=== PATIENT | male | born 1980 | race African-American/Black ===

== ENCOUNTER 2016-10-10 09:26 | Emergency (ER) | payer OTHER ==
[2016-10-10 09:59] LABS: MANUAL DIFF NEEDED? NO
[2016-10-10 10:15] LABS: URINE CULTURE NEEDED? NO; URINE MICRO REVIEW NEEDED? NO; URINE SOURCE CLEAN CATCH
[2016-10-10 10:20] LABS: BILIRUBIN URINE NEGATIVE (NEGATIVE); BLOOD URINE NEGATIVE (NEGATIVE); COLOR YELLOW; GLUCOSE URINE NEGATIVE (NEGATIVE); LEUKOCYTES URINE NEGATIVE (NEGATIVE); NITRITE URINE NEGATIVE (NEGATIVE); PROTEIN URINE 200 mg/dL (NEGATIVE); SP GRAVITY URINE 1.031; TURBIDITY URINE CLEAR (CLEAR); UROBILINOGEN URINE NORMAL (NORMAL)
[2016-10-10 10:22] LABS: UR EPITHELIAL CELLS <10 /HPF (<10); URINE BACTERIA NEGATIVE /HPF; URINE RBC <10 /HPF (<10); URINE WBC <10 /HPF (<10)
[2016-10-10 10:26] LABS: BASO% 0.2 % (0.0-0.8); HEMATOCRIT 39.7 % (42.0-52.0); HEMOGLOBIN 13.6 g/dL (14.0-18.0); IMM GRAN# 0.02 X1000 (0.0-0.04); IMM GRAN% 0.4 % (0.0-0.5); LYMPH# 2.25 X1000 (1.2-3.4); LYMPH% 44.1 % (20.5-51.1); MCH 27.6 PG (27-31); MCHC 34.3 g/dL (33-37); MCV 80.5 FL (81-99); MONO# 0.43 X1000 (0.11-0.59); MONO% 8.4 % (1.7-9.3); MPV 10.1 FL (7.4-10.4); NEUT% 44.9 % (42.2-75.2); PLT 258 X1000 (130-400); RBC 4.93 XMIL (4.7-6.1)
[2016-10-10 10:37] LABS: AGAP 10; ALBUMIN 3.9 g/dL (3.5-5.0); ALKALINE PHOSPHATASE 64 U/L (32-122); AMYLASE 155 U/L (20-200); BUN 9 mg/dL (8-22); CALCIUM 9.3 mg/dL (8.8-10.2); CHLORIDE 100 mmol/L (98-107); COSMO 274; GOT 17 U/L (10-34); GPT 17 U/L (10-44); LIPASE 45 U/L (13-60); POTASSIUM 4.1 mmol/L (3.5-5.1); SODIUM 138 mmol/L (136-145); TCO2 28 mmol/L (25-35); TOTAL BILIRUBIN 0.25 mg/dL (0.20-1.00); TOTAL PROTEIN 7.9 g/dL (6.3-8.3)
--- NOTE | 2016-10-10 11:51 | PROVIDER DOCUMENTATION ---
HPI-Abdominal Pain/GI Problem - General Chief Complaint: Abdominal Pain Stated Complaint: GENERALIZED PAIN Time Seen by Provider: 10/10/16 10:48 Source: patient, family Allergies/Adverse Reactions: Patient Allergies Allergy/AdvReac Type Severity Reaction Status Date / Time No Known Allergies Allergy Verified 10/10/16 11:04 Home Medications: Home Medication List Medication Instructions Recorded Confirmed Last Taken Type Lacosamide [Vimpat] 200 mg PO BID 07/18/16 10/10/16 10/10/16 History Oxcarbazepine [Oxtellar Xr] 600 mg PO BID 07/18/16 10/10/16 10/10/16 History Metformin [Glucophage] 500 mg PO BID CC 10/10/16 10/10/16 10/10/16 History Metronidazole [Flagyl] 500 mg PO TID #15 tablet 10/10/16 Unknown Rx - History of Present Illness-ABD Nature of Presenting Problems: A 36 y/o M with PMH of DM presented with LLQ discomfort since one month Abdominal Pain Onset Location: reports: LLQ Pain Radiation: reports: flank Quality of Pain: reports: aching Severity in ED: reports: mild Onset/Duration: reports: other (one month) Timing: reports: still present Activities at Onset: reports: none Exposure to sick contacts?: No Modifying Factors: improves with: nothing Associated Symptoms: reports: denies symptoms Last BM: this morning Dark Stools Present?: reports: none noticed Rectal Bleeding: reports: none Rectal Pain: reports: none Emesis Description: reports: none Bruising or Bleeding Gums?: No Similar Symptoms Previously?: No Recently seen or treated by another doctor?: No Review of Systems - Adult - REVIEW OF SYSTEMS - ADULT Constitutional: reports: no symptoms reported Eyes: reports: no symptoms reported Ears, Nose, Mouth & Throat: reports: no symptoms reported Cardiovascular: reports: no symptoms reported Respiratory: reports: no symptoms reported Gastrointestinal: reports: no symptoms reported Genitourinary: reports: no symptoms reported Musculoskeletal: reports: no symptoms reported Integumentary: reports: no symptoms reported Neurological: reports: no symptoms reported Psychiatric: reports: no symptoms reported Endocrine: reports: no symptoms reported Hematologic/Lymphatic: reports: no symptoms reported Allergic/Immunologic: reports: no symptoms reported All Other Systems: Reviewed and Negative Past History - Adult - PAST MEDICAL HISTORY-ADULT Review of Records: reports: Old Records Reviewed, Nursing Assessment Review, Medications Reviewed, Social history reviewed & non-contributory. Major Childhood Illnesses: reports: denies history Cardiovascular: reports: denies history Respiratory: reports: denies history Gastrointestinal: reports: denies history Obstetrical/Gynecological: reports: denies history Genitourinary: reports: denies history Musculoskeletal: reports: denies history Neurological: reports: Seizures/Epilepsy Endocrine/Immune: reports: Diabetes Other Conditions: reports: denies history - PRIOR SURGERIES/PROCEDURES Surgical/Procedure History: reports: none - PRIOR HOSPITALIZATIONS Prior Hospitalizations: reports: none - IMMUNIZATION STATUS Childhood Immunizations: See Nurse Assessment Flu Vaccine: See Nurse Assessment - FAMILY HISTORY Family History: reviewed, not pertinent Physical Exam-General - PHYSICAL EXAM-ADULT Initial Vital Signs Reviewed: Yes - CONSTITUTIONAL General Appearance: appears well, alert, no apparent distress - EYES Eyes: PERRL/EOMI, pink conjunctivae - HEAD, EARS, NOSE, MOUTH & THROAT HENMT: normocephalic/atraumatic, moist mucous membranes, normal ENT inspection - NECK Neck: non-tender, full range of motion - RESPIRATORY Respiratory: chest non-tender, lungs clear, normal breath sounds, no pleuratic chest pain, no respiratory distress - CARDIOVASCULAR Cardiovascular: normal peripheral pulses, regular rate, rhythm, no edema, no gallop - GASTROINTESTINAL (ABDOMEN) Abdominal Exam: normal bowel sounds, soft, tenderness (mild LLQ). 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, grossly normal - PSYCHIATRIC Psych/Mental Status: normal mood/affect Progress - PLAN OF CARE/RESULTS Progress/Plan/Lab Results: Laboratory Tests 10/10/16 10/10/16 10/10/16 09:42 09:42 10:00 WBC 5.10 RBC 4.93 Hgb 13.6 L Hct 39.7 L MCV 80.5 L MCH 27.6 MCHC 34.3 RDW Std Deviation 13.9 Plt Count 258 MPV 10.1 Immature Gran % (Auto) 0.4 Neut % (Auto) 44.9 Lymph % (Auto) 44.1 [place] % (Auto) 8.4 Eos % (Auto) 2.0 Baso % (Auto) 0.2 Immature Gran # (Auto) 0.02 Neut # (Auto) 2.29 Lymph # (Auto) 2.25 [place] # (Auto) 0.43 Eos # (Auto) 0.10 Baso # (Auto) 0.01 Sodium 138 Potassium 4.1 Chloride 100 Carbon Dioxide 28 Anion Gap 10 BUN 9 Creatinine 0.8 Estimated GFR/1.73 m2 > 60 BUN/Creatinine Ratio 11 Glucose 88 Calculated Osmolality 274 Calcium 9.3 Total Bilirubin 0.25 AST 17 ALT 17 Alkaline Phosphatase 64 Total Protein 7.9 Albumin 3.9 Globulin 4.0 Albumin/Globulin Ratio 1.0 Amylase 155 Lipase 45 Urine Source CLEAN CATCH Urine Color YELLOW Urine Turbidity CLEAR Urine pH 6.0 Ur Specific [place] 1.031 Urine Protein 200 A Ur Glucose (Stick) NEGATIVE Ur Ketones (Stick) NEGATIVE Urine Blood NEGATIVE Urine Nitrite NEGATIVE Urine Bilirubin NEGATIVE Urobilinogen Dipstick NORMAL Urine Leukocytes NEGATIVE Urine WBC (Auto) <10 Urine RBC (Auto) <10 U Epithel Cells (Auto) <10 Urine Bacteria (Auto) NEGATIVE Orders Category Date Time Status CT ABD/PELVIS W/ IV CONT ONLY [CT] Stat Exams 10/10/16 10:58 Completed AMYLASE [CHEM] Stat Lab 10/10/16 09:42 Completed CBC WITH ELECTRONIC DIFF [HEME] Stat Lab 10/10/16 09:42 Completed COMPREHENSIVE METABOLIC PANEL [CHEM] Stat Lab 10/10/16 09:42 Completed LIPASE [CHEM] Stat Lab 10/10/16 09:42 Completed UA Reflex [URINALYSIS W/POSS RFLX CULT] [URINALYSIS] Lab 10/10/16 10:00 Completed Stat Vital Signs Temp Pulse Resp BP Pulse Ox 10/10/16 13:41 97.7 F 83 16 144/89 99 10/10/16 09:38 97.4 F L 79 18 146/89 98 No Known Allergies Allergy (Verified 10/10/16 11:04) Lacosamide [Vimpat] 200 mg PO BID 07/18/16 Oxcarbazepine [Oxtellar Xr] 600 mg PO BID 07/18/16 Metformin [Glucophage] 500 mg PO BID CC 10/10/16 I&O 10/09/16 10/10/16 10/11/16 07:59 07:59 07:59 Output Total 60 Balance -60 Laboratory 10/10/16 10/10/16 10/10/16 10:00 09:42 09:42 WBC 5.10 RBC 4.93 Hgb 13.6 L Hct 39.7 L MCV 80.5 L MCH 27.6 MCHC 34.3 RDW Std Deviation 13.9 Plt Count 258 MPV 10.1 Immature Gran % (Auto) 0.4 Neut % (Auto) 44.9 Lymph % (Auto) 44.1 [place] % (Auto) 8.4 Eos % (Auto) 2.0 Baso % (Auto) 0.2 Immature Gran # (Auto) 0.02 Neut # (Auto) 2.29 Lymph # (Auto) 2.25 [place] # (Auto) 0.43 Eos # (Auto) 0.10 Baso # (Auto) 0.01 Sodium 138 Potassium 4.1 Chloride 100 Carbon Dioxide 28 Anion Gap 10 BUN 9 Creatinine 0.8 Estimated GFR/1.73 m2 > 60 BUN/Creatinine Ratio 11 Glucose 88 Calculated Osmolality 274 Calcium 9.3 Total Bilirubin 0.25 AST 17 ALT 17 Alkaline Phosphatase 64 Total Protein 7.9 Albumin 3.9 Globulin 4.0 Albumin/Globulin Ratio 1.0 Amylase 155 Lipase 45 Urine Source CLEAN CATCH Urine Color YELLOW Urine Turbidity CLEAR Urine pH 6.0 Ur Specific [place] 1.031 Urine Protein 200 A Ur Glucose (Stick) NEGATIVE Ur Ketones (Stick) NEGATIVE Urine Blood NEGATIVE Urine Nitrite NEGATIVE Urine Bilirubin NEGATIVE Urobilinogen Dipstick NORMAL Urine Leukocytes NEGATIVE Urine WBC (Auto) <10 Urine RBC (Auto) <10 U Epithel Cells (Auto) <10 Urine Bacteria (Auto) NEGATIVE - CT/MRI 1 CT Study: Abdomen, Pelvis (external Iliac adenopathy) Departure - Departure Time of Disposition Order: 13:59 DIAGNOSIS: Adenopathy Disposition: HOME 01 Certified Medical Emergency: Emergent Condition: Good Prescriptions: Metronidazole [Flagyl] 500 mg PO TID #15 tablet - Critical Care Note Comments: A 36 y/o M with non specific pain , on CT scan found to have left external iliac adenopathy, as pain is going for a month will try a course of flagyl and see if there any improvement, see PCP in 1-2 weeks for further evalaution
--- NOTE | 2016-10-10 12:58 | Diag Imaging Result Document ---
PROCEDURE NAME: CT ABD/PELVIS W/ IV CONT ONLY - 10/10/2016 CT OF THE ABDOMEN WITH INTRAVENOUS CONTRAST: FINDINGS: The visualized portion of the chest is unremarkable. The spleen and adrenal glands are not enlarged. The pancreas is normal in appearance. There are multiple cortical cysts in the kidneys. There is no evidence of hydronephrosis. There is some stool throughout the colon. The small bowel is not distended. There is no evidence of appendicitis. CT OF THE PELVIS WITH INTRAVENOUS CONTRAST: FINDINGS: There is some diverticulosis in the sigmoid colon without evidence of diverticulitis. There is no evidence of free fluid. There is no evidence of masses. There is some inguinal adenopathy bilaterally and enlarged external iliac nodes are present on both sides, the largest being on the left side measuring over 17 mm in greatest dimension. There is no evidence of acute bony disease. IMPRESSION: 1. External iliac adenopathy. 2. Otherwise, no evidence of acute disease.
[2016-10-10 13:42] VITALS: BP 144/89
== END 2016-10-10 14:18 | disposition home or self-care (01) ==
LOC: ED 09:26
DX: R59.0 Localized enlarged lymph nodes (principal); R10.32 Left lower quadrant pain; R10.9 Unspecified abdominal pain; R10.814 Left lower quadrant abdominal tenderness; R56.9 Unspecified convulsions; E11.9 Type 2 diabetes mellitus without complications; Z79.899 Other long term (current) drug therapy
CPT/HCPCS: 74177; 80053; 81001; 82150; 83690; 85025; Q9967

== ENCOUNTER 2016-10-31 21:54 | Emergency (ER) | payer OTHER ==
[2016-10-31 22:07] VITALS: BP 170/89
--- NOTE | 2016-10-31 22:10 | PROVIDER DOCUMENTATION ---
HPI-General Adult - General Stated Complaint: RX REQUEST Time Seen by Provider: 10/31/16 21:57 Source: patient Allergies/Adverse Reactions: Patient Allergies Allergy/AdvReac Type Severity Reaction Status Date / Time No Known Allergies Allergy Verified 10/10/16 11:04 Home Medications: Home Medication List Medication Instructions Recorded Confirmed Last Taken Type Lacosamide [Vimpat] 200 mg PO BID 07/18/16 10/10/16 10/10/16 History Oxcarbazepine [Oxtellar Xr] 600 mg PO BID 07/18/16 10/10/16 10/10/16 History Metformin [Glucophage] 500 mg PO BID CC 10/10/16 10/10/16 10/10/16 History Metronidazole [Flagyl] 500 mg PO TID #15 tablet 10/10/16 Unknown Rx Lacosamide [Vimpat] 200 mg PO BID #60 tablet 10/31/16 Unknown Rx Oxcarbazepine [Oxtellar Xr] 600 mg PO BID #60 tab.er.24h 10/31/16 Unknown Rx - History of Present Illness -Gen Adult Nature of Presenting Problems: Pt. is 36 yom that presents with c/o leaving his seizure medications at a hotel when he was out of town. Pt. requests a refill and denies any complaints at time of exam. Location of Pain/Injury: reports: none. denies: head, face, mouth, neck, chest , upper extremity, hand(s), abdomen, back, pelvis, genitalia, lower extremity, feet, upper body, lower body, generalized Pain Radiation: reports: no radiation Quality of Pain: reports: none. denies: aching, burning, cramping, dull, fullness, indigestion, pressure, sharp, stabbing, tearing, throbbing, tightness Severity: denies: mild, moderate, severe Onset/Duration: reports: unsure Timing: reports: still present. denies: improving, gone now, resolved prior to arrival, intermittent, constant, changing over time, getting worse Context/Activities at Onset: reports: none. denies: recent emotional stress, recent physical stress, recent trauma history, possible bad food, cold exposure , out of country travel Modifying Factors: improves with: nothing Associated Symptoms: reports: denies symptoms. denies: anxiety, arm pain, back/ neck pain, chest pain, constipation, cough, diaphoresis, diarrhea, dizziness, EENT symptoms, fatigue, fever/chills, genitourinary problems, headaches, heartburn, joint pain, loss of appetite, malaise, muscle aches, sinus congestion /drainage, nausea, rash, seizure, shortness of breath, sensory/motor loss, pain with inspiration, swelling/mass in abdomen, syncope, vomiting, weakness, trouble walking Similar Symptoms Previously?: No Recently seen or treated by another doctor?: No Review of Systems - Adult - REVIEW OF SYSTEMS - ADULT Constitutional: reports: see HPI. denies: chills, fever, fatique Eyes: reports: see HPI. denies: discharge, blurred vision, double vision Ears, Nose, Mouth & Throat: reports: see HPI. denies: ear pain, hearing loss, sinus problem, nose pain, loose teeth, mouth/dental pain, throat pain, throat swelling Cardiovascular: reports: see HPI. denies: chest pain, irregular heart rate, orthopnea, palpitations, syncope Respiratory: reports: see HPI. denies: cough, dyspnea on exertion, pleurisy, shortness of breath, wheezing Gastrointestinal: reports: see HPI. denies: abdominal pain, hematemesis, difficulty swallowing, frequent heartburn, nausea, vomiting Genitourinary: reports: see HPI. denies: dysuria, discharge, hematuria, hesitency, urgency Musculoskeletal: reports: see HPI. denies: bone pain, back pain, joint pain, muscle aches, neck pain Integumentary: reports: see HPI. denies: hives, hair loss, itching, rash, skin thickening Neurological: reports: see HPI, seizure. denies: ataxia, headache/migraines, numbness, paresthesia, tremors Past History - Adult - PAST MEDICAL HISTORY-ADULT Review of Records: reports: Old Records Reviewed, Nursing Assessment Review, Medications Reviewed, Social history reviewed & non-contributory. Major Childhood Illnesses: reports: denies history Cardiovascular: reports: denies history Respiratory: reports: denies history Gastrointestinal: reports: denies history Obstetrical/Gynecological: reports: denies history Genitourinary: reports: denies history Musculoskeletal: reports: denies history Neurological: reports: Seizures/Epilepsy Endocrine/Immune: reports: Diabetes Other Conditions: reports: denies history - PRIOR SURGERIES/PROCEDURES Surgical/Procedure History: reports: none - PRIOR HOSPITALIZATIONS Prior Hospitalizations: reports: none - IMMUNIZATION STATUS Childhood Immunizations: See Nurse Assessment Flu Vaccine: See Nurse Assessment - FAMILY HISTORY Family History: reviewed, not pertinent - SOCIAL HISTORY Smoking: denies Physical Exam-General - PHYSICAL EXAM-ADULT Initial Vital Signs Reviewed: Yes - CONSTITUTIONAL General Appearance: alert, no apparent distress, thin. negative: obese, anxious , lethargic, slow to respond, obtunded, combative - EYES Eyes: PERRL/EOMI, pink conjunctivae. negative: conjuctival exudate, scleral icterus, subconjunctival hemorrhage - HEAD, EARS, NOSE, MOUTH & THROAT HENMT: normocephalic/atraumatic, moist mucous membranes. negative: angioedema, frontal tenderness, maxillary tenderness - NECK Neck: non-tender, full range of motion, supple, normal inspection. negative: lymphadenopathy, trachial deviation, thyromegaly - RESPIRATORY Respiratory: lungs clear, normal breath sounds. negative: crackles, rales, rhonchi, stridor, wheezing - CARDIOVASCULAR Cardiovascular: normal peripheral pulses, regular rate, rhythm, no edema, no JVD , no murmur. negative: extra beats, friction rub, irregularly irregular - CHEST (BREASTS) Chest/Breast: deferred - GASTROINTESTINAL (ABDOMEN) Abdominal Exam: normal bowel sounds, non tender, soft. negative: distended, guarding, rigid, rebound, tenderness, hernia, mass - GENITOURINARY Male Genitalia: deferred Rectal Exam: deferred Hemoccult Exam: deferred - LYMPHATIC Lymphatic: no adenopathy. negative: axilla node tender, cervical node tenderness - MUSCULOSKELETAL Back Exam: normal inspection, no CVA tenderness, no vertebral tenderness. negative: ecchymosis, swelling, vertebral tenderness Extremity: normal range of motion, non-tender, normal gait, normal inspection. negative: deformity, erythema, inflammation, swelling, tenderness Peripheral Pulses: radial (R): 2+, radial (L): 2+ - SKIN Integumentary: normal color, normal turgor, warm/dry. negative: cyanosis, diaphoresis, ecchymosis, erythema, jaundice, mottled, pallor, petechiae, purpura , rash, swelling, tenderness - NEUROLOGIC Neurologic: grossly normal, no motor/sensory deficits. negative: aphasia, facial droop, focal weakness, motor weakness, sensory deficit - PSYCHIATRIC Psych/Mental Status: normal mood/affect, normal thought content, normal thought process, oriented x 3. negative: anxious, paranoid, tearful Progress - PLAN OF CARE/RESULTS Progress/Plan/Lab Results: Discussed plan of care with patient. Patient agrees with plan and verbalizes understanding. Vital Signs Temp Pulse BP Pulse Ox 10/31/16 22:03 98.7 F 93 H 170/89 97 No Known Allergies Allergy (Verified 10/10/16 11:04) Lacosamide [Vimpat] 200 mg PO BID 07/18/16 Oxcarbazepine [Oxtellar Xr] 600 mg PO BID 07/18/16 Metformin [Glucophage] 500 mg PO BID CC 10/10/16 Metronidazole [Flagyl] 500 mg PO TID #15 tablet 10/10/16 Departure - Departure Time of Disposition Order: 22:08 DIAGNOSIS: Encounter for medication refill Disposition: HOME 01 Certified Medical Emergency: Emergent Condition: Stable Additional Instructions: Follow up with primary care physician Take medications as directed Return to ED for any concerns or worsening of symptoms ED Follow Up Instructions: You have been treated by a care provider in the Emergency Department. These instructions are being provided to you so you can have an understanding of how to care for yourself upon discharge. Upon discharge from the Emergency Department, you are responsible for making arrangements for follow-up care by a physician of your choice. Take all prescribed medications as directed. Return to the Emergency Department immediately for any new or worsening symptoms. You may call the Physician Referral phone number at [phone] to obtain a list of Physicians who are taking new patients. Prescriptions: Oxcarbazepine [Oxtellar Xr] 600 mg PO BID #60 tab.er.24h Lacosamide [Vimpat] 200 mg PO BID #60 tablet Attestation - Physician/ VANESSA Attestation Patient care was provided by Advanced Practice Provider:: Yes Advanced Practice Provider:: Jonas Marin Advanced Practice Provider documentation review:: The Mid-level provider documentation, treatment plan and medical decision making was reviewed by the physician who agrees with all treatment and medical decision making by the [facility].
== END 2016-10-31 22:23 | disposition home or self-care (01) ==
LOC: ED 21:54
DX: Z76.0 Encounter for issue of repeat prescription (principal); R56.9 Unspecified convulsions; E11.9 Type 2 diabetes mellitus without complications; Z79.899 Other long term (current) drug therapy